=== PATIENT | female | born 1955 | race Caucasian/White ===

== ENCOUNTER → 2018-06-22 | Day surgery (SDC) | payer OTHER ==
[~2018-06-22] MED LIST: BUPIVACAINE 0.5% (SDV) 30 ML INJ; CEFAZOLIN 1 GM INJ; DIPHENHYDRAMINE 50 MG INJ IV; EPHEDrine SULFATE 50 MG/5 ML SYG IV; FENTAnyl 50 MCG/ML VIAL IV; GLYCOPYRROLATE 0.4 MG INJ; HYDROmorphONE 1 MG/5 ML IV SYRINGE IV; LABETALOL HCL 20MG INJ IV; LIDOCAINE 1% (MPF) 10 ML INJ; LIDOCAINE 2% (MDV) 20 ML INJ; LIDOCAINE 2% (SDV) 5 ML INJ; MEPERIDINE /PF (100 MG/2 ML) AMPULE; MEPERIDINE 25 MG INJ IV; METOCLOPRAMIDE 10 MG INJ; METOCLOPRAMIDE 10 MG INJ IV; MIDAZOLAM 1 MG/ML 2 ML INJ IV; NEOSTIGMINE 3 MG/3 ML SYRINGE; ONDANSETRON 4 MG INJ; ONDANSETRON 4 MG INJ IV; OXYCODONE/ACETAMINOPHEN (5/325) TAB PO; PROPOFOL 20 ML; ROCURONIUM 50 MG INJ; ROPIVACAINE 0.5 % 30 ML VIAL; SUCCINYLCHOLINE CHLORIDE 100 MG/5 ML SYG IV; hydrALAzine 20 MG INJ IV
[2018-06-22] MEDS: POLYMYXIN/BACITRACIN 1L IRRIG (13:31)
[2018-06-22] MEDS: HYDROmorphONE 1 MG/5 ML IV SYRINGE IV ×2 (15:25→15:47)
== END | disposition home or self-care (01) ==
LOC: SDS 11:18
DX: S52.572D Other intraarticular fracture of lower end of left radius, subsequent encounter for closed fracture with routine healing (principal); S52.202D Unspecified fracture of shaft of left ulna, subsequent encounter for closed fracture with routine healing; X58.XXXD Exposure to other specified factors, subsequent encounter; G56.02 Carpal tunnel syndrome, left upper limb
CPT/HCPCS: 25535